=== PATIENT | male | born 1985 ===

== ENCOUNTER 2020-11-04 16:57 | Emergency (ER) | payer SELFPAY ==
[~2020-11-04] VITALS: Ht 175.3 cm; Wt 72.3 kg
--- NOTE | 2020-11-04 17:17 | NUR ---
JOVANNY [facility] [place] FOR CHEST PAIN RADIATIONG TO L. SHOULDER STARTING THIS MORNING. PT WITH SIGNIFICANT HISTORY OF IV HERION. PT TAKES SUBOXONE BUT HASN'T HAD ANY X4 DAYS. PT POSTIONED TO COMFORT IN BED. ATTACHED TO MONITORS. VSS. NADN. GUARDS AT BEDSIDE AWAITING ORDERS.
[2020-11-04] MEDS ORDERED: ATEN25TA PO (17:23)
[2020-11-04] MEDS ORDERED: FURO-93 PO (17:23)
[2020-11-04] MEDS ORDERED: ONDANSETRON ODT 8 MG PO ONE (18:00)
[2020-11-04] MEDS ORDERED: MAALOX/HYOSCYAMINE/LIDOCAINE 45 ML BTL ONE (18:07)
[2020-11-04] MEDS ORDERED: ONDANSETRON ODT 8 MG ONE (18:07)
[2020-11-04 18:16] LABS: BASOPHILS % (AUTO) 0 % (0-1); EOSINOPHILS % (AUTO) 0 % (1-7); LYMPHOCYTES % (AUTO) 23 % (22-44); MEAN CORPUSCULAR HEMOGLOBIN 32.9 pg (27.5-34.5); MEAN CORPUSCULAR HGB CONC 34.9 g/dL (33.2-36.2); MEAN PLATELET VOLUME 9.7 fL (7.4-10.4); MONOCYTES % (AUTO) 6 % (2-9); NEUTROPHILS % (AUTO) 71 % (42-75); PLATELET COUNT 246 x10^3/uL (130-400); RED BLOOD COUNT 4.52 x10^6/uL (4.38-5.82); RED CELL DISTRIBUTION WIDTH 13.2 % (9.4-14.8)
[2020-11-04 18:23] LABS: ALANINE AMINOTRANSFERASE 53 U/L (12-78); ALBUMIN 4.4 g/dL (3.4-5.0); CALCIUM 9.4 mg/dL (8.5-10.1); CREATININE 0.83 mg/dL (0.7-1.3)
[2020-11-04 18:29] LABS: ALKALINE PHOSPHATASE 62 U/L (45-117); ANION GAP 6 mmol/L (5-15); BILIRUBIN,TOTAL 0.6 mg/dL (0.2-1.0); CHLORIDE 105 mmol/L (98-107); TOTAL PROTEIN 8.3 g/dL (6.4-8.2); TROPONIN I < 0.015 ng/mL (0.000-0.045)
--- NOTE | 2020-11-04 18:52 | NUR ---
BEDSIDE REPORT TO CHETAN JOHNSON
[2020-11-04 19:00] LABS: MICROSCOPIC INDICATED
--- NOTE | 2020-11-04 19:01 | NUR ---
REPORT FROM ARMANDO ASSUMED CARE OF PT
[2020-11-04 19:03] VITALS: BP 123/73
[2020-11-04 19:06] LABS: AMPHETAMINE SCREEN, URINE Negative (Negative); BARBITURATE SCREEN, URINE Negative (Negative); BENZODIAZEPINE SCREEN, URINE Negative (Negative); CANNABINOID SCREEN, URINE Negative (Negative); COCAINE SCREEN, URINE Negative (Negative); METHADONE SCREEN, URINE Negative (Negative); OPIATE SCREEN, URINE Negative (Negative)
== END 2020-11-04 20:03 | disposition home or self-care (01) ==
LOC: ED 19:57
DX: S29.011A Strain of muscle and tendon of front wall of thorax, initial encounter (principal); S46.812A Strain of other muscles, fascia and tendons at shoulder and upper arm level, left arm, initial encounter; R94.31 Abnormal electrocardiogram [ECG] [EKG]; X58.XXXA Exposure to other specified factors, initial encounter; Y93.89 Activity, other specified; Y92.89 Other specified places as the place of occurrence of the external cause; Y99.8 Other external cause status
CPT/HCPCS: 36415; 71045; 80053; 80307; 81001; 83690; 84484; 85025; 93005; 99285